=== PATIENT | male | born 1975 | race Caucasian/White ===

== ENCOUNTER 2016-08-09 14:13 | Emergency (ER) | payer OTHER ==
--- NOTE | 2016-08-09 15:20 | EDM.PDOC ---
ED HPI Skin/Rash - General Chief Complaint: Laceration Stated Complaint: L THUMB LACERATION Time Seen by Provider: 08/09/16 15:00 Source: Reports: Patient, RN notes reviewed History Limitations: Reports: No limitations - History of Present Illness INITIAL COMMENTS - FREE TEXT/NARRATIVE: The patient states that he accidentally cut the ventral aspect of his left thumb with a kitchen knife while putting dishes away, about 10 minutes prior to arrival to the ED. He presents with approximately 2 cm linear laceration running diagonally across his IP joint. He is otherwise uninjured. The patient does not recall his last tetanus vaccination was, but declines one today. - Related Data Allergies Allergy/AdvReac Type Severity Reaction Status Date / Time No Known Allergies Allergy Verified 08/09/16 14:35 Home Meds: Ambulatory Orders Medication Instructions Recorded Confirmed Albuterol [IMW: Albuterol HFA] 1 inh INH DAILY PRN 08/09/16 08/09/16 Multivitamin [Multivitamins] 1 tab PO DAILY 08/09/16 08/09/16 Past Medical History Cardiovascular History: Reports: Hypertension (untreated) Respiratory History: Reports: Asthma Social & Family History - Tobacco Use Smoking Status *Q: Former Smoker Tobacco Use Within Last Twelve Months: No Years of Tobacco use: 20 Packs/Tins Daily: 1.5 Used Tobacco, but Quit: Yes Month Tobacco Last Used: Feb 2014 Second Hand Smoke Exposure: No - Caffeine Use Caffeine Use: Reports: Tea - Alcohol Use Alcohol Use History: No - Recreational Drug Use Recreational Drug Use: No - Living Situation & Occupation Living situation: Reports: , with spouse, with family (6 kids) 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[employer]) ED ROS GENERAL - Review of Systems Review Of Systems: See Below Constitutional: Reports: no symptoms HEENT: Reports: No symptoms Respiratory: Reports: No Symptoms Cardiovascular: Reports: No symptoms Endocrine: Reports: no symptoms GI/Abdominal: Reports: No symptoms : Reports: no symptoms Musculoskeletal: Reports: no symptoms Skin: Reports: no symptoms Neurological: Reports: No Symptoms Psychiatric: Reports: No symptoms Hematologic/Lymphatic: Reports: no symptoms Immunologic: Reports: no symptoms ED EXAM, SKIN/RASH Exam: See Below Exam Limited By: No limitations General Appearance: alert, WD/WN, no apparent distress Extremities: other (There is an approximately 2 cm linear laceration running diagonally across the patient's left thumb IP joint, from the distal/all are aspect to the proximal/radial aspect. Neurovascular status of the left thumb is intact. No tendinous or ligamentous injury.) ED SKIN PROCEDURES - Laceration/Wound Repair Left Finger Lac/wound length in cm: 2.0 Appearance: subcutaneous, linear, clean Distal NVT: neuro & vascular intact, no tendon injury Anesthetic type: other (None) Skin prep: saline Exploration/Debridement/Repair: wound explored, in a bloodless field, explored to base, no foreign material found, wound margins revised Closed with: dermabond Tetanus status addressed: Yes (Refused) Complications: No Progress/Comments: Dorsal AlumaFoam splint applied per the RN, to keep the patient's left thumb in a natural curve. Course - Vital Signs Last Recorded V/S: Last Vital Signs Temp 36.9 C 08/09/16 14:33 Pulse 74 08/09/16 14:33 Resp 16 08/09/16 14:33 BP Pulse Ox 98 08/09/16 14:33 - Re-Assessments/Exams Free Text/Narrative Re-Assessment/Exam: 08/09/16 15:29 As the wound edges were naturally apposed, the wound was a good candidate to close the Dermabond. This was applied myself, followed by a dorsal finger splint to keep the finger in a natural curve. Departure - Departure Time of Disposition: 15:29 Disposition: Home, Self-Care 01 Condition: good Clinical Impression: Laceration of left thumb Referrals: Bia Washington MD [Primary Care Provider] - Forms: ED Department Discharge Additional Instructions: You were seen in the emergency room today after cutting your left thumb. Your wound was closed with Dermabond, and a splint applied to the back of your thumb. The Dermabond can get wet when you wash your hands, but you should not soak the Dermabond. Keep the splint on your finger for a couple of days to prevent excessive stress to the Dermabond. Allow the Dermabond to flake off on its own over the next several days. It is highly unlikely that your wound will get infected, however, if there is any concern of such, please followup with your PCP or return to the ER for reevaluation.
[2016-08-09 15:49] VITALS: BP 140/85
== END 2016-08-09 15:40 | disposition home or self-care (01) ==
LOC: JD.ED 14:13
DX: S61.012A Laceration without foreign body of left thumb without damage to nail, initial encounter (principal); W26.0XXA Contact with knife, initial encounter
CPT/HCPCS: 12001; 99282; 99283-25

== ENCOUNTER 2019-09-26 19:00 | Emergency (ER) | payer OTHER | END 2019-09-26 19:03 | disposition left against medical advice (07) | LOC: JD.ED 19:00 | DX: Z53.21 Procedure and treatment not carried out due to patient leaving prior to being seen by health care provider (principal) ==